=== PATIENT | female | born 1995 | race Asian ===

== ENCOUNTER 2019-06-23 22:49 | Emergency (ER) | payer MEDICAID, OTHER ==
[~2019-06-23] VITALS: Ht 165.1 cm; Wt 64.4 kg
--- NOTE | 2019-06-23 22:54 | NUR ---
PA AT BEDSIDE AT THIS TIME.
[2019-06-23] MEDS ORDERED: ONDANSETRON 2MG/ML, 2ML ONE (22:55)
--- NOTE | 2019-06-23 23:03 | NUR ---
POC DISCUSSED WITH FRIEND AT BEDSIDE. PT MOSTLY SLEEPING. PT MORE CALM AT THIS TIME. FRIEND DENIES CURRENT NEEDS. PT ON PULSE OX AND BP. VSS
[2019-06-23] MEDS ORDERED: SODIUM CHLORIDE FLUSH 10ML SYR IVF ONE (23:30)
[2019-06-23] MEDS ORDERED: SODIUM CHLORIDE 0.9% 1,000ML IVBOLUS ONE (23:30)
--- NOTE | 2019-06-23 23:57 | NUR ---
PT RESTING. NAD. VSS. FRIEND REMAINS AT BEDSIDE.
--- NOTE | 2019-06-24 01:01 | NUR ---
PT AWAKE AND REQUESTING TO LEAVE. PT ABLE TO AMBULATE INDEPENDENTLY IN ROOM. PT DENIES COMPLAINTS. FRIENDS AT BEDSIDE STATE THEY WILL STAY WITH PT TONIGHT.
[2019-06-24 01:02] VITALS: BP 102/74
== END 2019-06-24 01:23 | disposition home or self-care (01) ==
LOC: ED 06-24 01:14
DX: F10.129 Alcohol abuse with intoxication, unspecified (principal); R11.10 Vomiting, unspecified; Y90.9 Presence of alcohol in blood, level not specified
CPT/HCPCS: 96360; 99283; J7030